=== PATIENT | male | born 1980 | race African-American/Black ===

== ENCOUNTER 2021-10-21 08:27 | Emergency (ER) | payer MEDICAID, OTHER ==
[~2021-10-21] VITALS: Ht 182.9 cm; Wt 122.5 kg
--- NOTE | 2021-10-21 08:30 | NUR ---
[id number] [facility] HOME C/O DIZZINESS, HEADACHE 6/10PS, HYPERTENSION, AMBULATORY, AAOX3, BREATHING EVEN AND NON LABORED, CONNECTED TO MONITOR, AWAITING MD CHAMBERS
--- NOTE | 2021-10-21 08:42 | NUR ---
DR QUICK AT BEDSIDE
--- NOTE | 2021-10-21 09:00 | NUR ---
TECH AT BEDSIDE FOR EKG
--- NOTE | 2021-10-21 09:07 | NUR ---
SALINE LOCK ESTABLISHED, BLOOD DRAWN, AND SENT TO LAB
--- NOTE | 2021-10-21 09:12 | NUR ---
PT TAKEN TO RADIOLOGY
--- NOTE | 2021-10-21 09:15 | NUR ---
PT BACK FROM RADIOLOGY
[2021-10-21 09:23] LABS: BASOPHILS % (AUTO) 0.6 % (0.0-2.0); HEMATOCRIT 41 % (39-51); HEMOGLOBIN 13.9 g/dL (13.5-17.5); LYMPHOCYTES # (AUTO) 1.5 K/uL (0.8-4.8); LYMPHOCYTES % (AUTO) 30.3 % (20.0-44.0); MEAN CORPUSCULAR HGB CONC 34 g/dl (31.0-36.0); MEAN CORPUSCULAR VOLUME 90 fL (80-96); MONOCYTES # (AUTO) 0.5 K/uL (0.1-1.30); MONOCYTES % (AUTO) 9.8 % (2.0-12.0); NEUTROPHILS # (AUTO) 2.8 K/uL (1.8-8.9); NEUTROPHILS % (AUTO) 58.3 % (43.0-81.0); PLATELET COUNT (AUTO) 259 K/uL (150-450); RED BLOOD CELL COUNT(AUTO) 4.59 MIL/uL (4.5-6.0); WHITE BLOOD COUNT (AUTO) 4.8 K/uL (4.3-11.0)
[2021-10-21 09:30] LABS: CALCIUM, SERUM 8.8 mg/dL (8.5-10.1); CARBON DIOXIDE 31 mmol/L (21-32); CHLORIDE 106 mmol/L (98-107); CREATININE 1.2 mg/dL (0.6-1.3); GLUCOSE 116 mg/dL (74-106); POTASSIUM 3.2 mmol/L (3.5-5.1); SODIUM SERUM 144 mmol/L (136-145); UREA NITROGEN, BLOOD 7 mg/dL (7-18)
[2021-10-21] MEDS ORDERED: SENN1TAB6 PO ×2 (12:15→12:27)
--- NOTE | 2021-10-21 12:30 | NUR ---
IV removed. Catheter intact and site benign. Pressure and 4x4 applied to site. No bleeding noted.Patient discharged to home in stable condition. Written and verbal after care instructions given. Patient verbalizes understanding of instruction.
[2021-10-21 12:34] VITALS: BP 147/94
== END 2021-10-21 12:34 | disposition home or self-care (01) ==
LOC: ER 08:30
DX: R07.89 Other chest pain (principal); R06.4 Hyperventilation; K59.00 Constipation, unspecified; I10 Essential (primary) hypertension
CPT/HCPCS: 36415; 70450-TC; 71045-TC; 80048-TC; 84484-TC; 85025-TC